=== PATIENT | female | born 1975 | race Hispanic/Latino ===

== ENCOUNTER 2022-04-26 13:56 | Emergency (ER) | payer BC ==
[~2022-04-26] VITALS: Ht 152.4 cm; Wt 88.5 kg
[2022-04-26 13:58] VITALS: BP 123/55
== END 2022-04-26 14:39 | disposition home or self-care (01) ==
LOC: EDH 13:56
DX: R20.0 Anesthesia of skin (principal); Z90.49 Acquired absence of other specified parts of digestive tract; Z98.890 Other specified postprocedural states

== ENCOUNTER → 2022-11-11 | Outpatient (CLI) | payer BC | END | disposition home or self-care (01) | LOC: SHCH 14:38 | PROVIDERS: ATTEND Internal Medicine | DX: R07.9 Chest pain, unspecified (principal) | CPT/HCPCS: 93306 ==